=== PATIENT | male | born 1965 | race Caucasian/White ===

== ENCOUNTER → 2017-09-02 | Outpatient (CLI) | payer OTHER ==
--- NOTE | 2017-09-02 15:48 | XR ---
EXAMINATION TYPE: XR knee limited LT DATE OF EXAM: 09/02/2017 CLINICAL HISTORY: pain TECHNIQUE: Two views of the left knee are obtained. COMPARISON: None. FINDINGS: There is no acute fracture/dislocation. The tri-compartment joint spaces appear within no rmal limits. Bony exostosis suspected arising from the medial right supracondylar region of the femu r. The overlying soft tissue appears unremarkable. Small joint effusion noted. IMPRESSION: There is no acute fracture or dislocation. Suspect exostosis. ICD 10 NO FRACTURE, INITIAL EVALUATION
== END | disposition home or self-care (01) ==
LOC: RADXRMAIN 15:33
PROVIDERS: ATTEND Family Medicine
DX: S89.92XA Unspecified injury of left lower leg, initial encounter (principal)

== ENCOUNTER → 2018-06-15 | Outpatient (CLI) | payer OTHER ==
--- NOTE | 2018-06-15 10:24 | EST ---
EXERCISE STRESS AGE: 53 SEX: M HT: 70" WT: 278 PROTOCOL: Otf stress test STAGE: 3 DURATION OF EXERCISE: 9:00 HEART RATE REST: 86 BLOOD PRESSURE REST: 148/72 MAXIMUM HEART RATE ACHIEVED: 147 MAXIMUM BLOOD PRESSURE: 212/85 85% MPHR: 140 100% MPHR: 165 METS: 10.5 INDICATIONS: Chest pain. CLINICAL INFORMATION: Baseline EKG shows sinus rhythm with poor R-wave progression. Patient exercised on Otf protocol for a total of 9 minutes achieving 10 METS, 89% of predicted maximal heart rate without chest pain or diagnostic ST-segment depression. CONCLUSION: 1. Good exercise tolerance. 2. Negative stress test by EKG criteria. 3. Abnormal baseline EKGs suggestive of prior anteroseptal myocardial infarction. MMODL / IJN: [id number] /
== END | disposition home or self-care (01) ==
LOC: RADNMMAIN 08:36
DX: R94.31 Abnormal electrocardiogram [ECG] [EKG] (principal)
CPT/HCPCS: 93017